=== PATIENT | female | born 1990 | race Hispanic/Latino ===

== ENCOUNTER 2020-10-20 17:29 | Inpatient (IN) | payer OTHER ==
[~2020-10-20] VITALS: Ht 162.6 cm; Wt 130.6 kg
--- NOTE | 2020-10-20 19:01 | NUR ---
BOTH NARES SWABBED FOR COVID-19 WITHOUT COMPLICATION FOR RAPID TESTING. SMAPLE TAKEN TO [facility].
--- NOTE | 2020-10-20 20:01 | NUR ---
10/20/202000 Navya Diaz 1945: PT ARRIVES TO [facility] ROOM 101. PT IS AWAKE, NO C/O PAIN, LIGHTHEADEDNESS, OR NAUSEA.
--- NOTE | 2020-10-21 11:26 | NUR ---
NUTRITION CONSULT RECEIVED. DR. GEORGES WANTING ADVICE ON DIET FOR PATIENT WHILE HERE. SHE DELIVERED HER BABY VIA LAST NIGHT. WAS ON CLEAR LIQUIDS AFTER. SHE IS PLANNING TO BREAST FEED. HEIGHT: 5'4"CURRENT WEIGHT: 287 LBSEARLY WEIGHT (FEBRUARY): 248 LB PATIENT NOT ON INSULIN AT THIS TIME. NURSING CHECKING BLOOD SUGARS. SHE WAS TAKING INSULIN DURING . HGBA1C ON 03/25/20: 9.2. ESTIMATED CALORIE NEEDS: 9140-5021 (18-20 KCAL/KG) ESTIMATED PROTEIN NEEDS: 122 GRAMS (20% OF CALORIES) DIET FOR HERE: I RECOMMEND 75 GM CONSISTENT CARB DIET WHILE HERE. SHE CAN HAVE SNACKS UP TO 25 GRAMS EACH. IF ANY OTHER QUESTIONS OR CONCERNS, DON'T HESITATE TO CALL ME.
--- NOTE | 2020-10-21 12:44 | PR ---
[facility] [address] [facility] [place], [place] [address] Signed PP Progress Notes Datetime Report Generated by CPN: 10/21/2020 12:44 SUBJECTIVE: [id number] Pain: Within Normal Limits Nausea/Vomiting: Denies Vital Signs: [id number] Vital Signs: Reviewed; Within Normal Limits Notable Details: PP Hgb/Hct = 11.9/35.3 Mag level = 4.6 EXAM: Ongoing Abdomen/Uterus: Normal Lochia: Normal Extremities: Normal Incision: Normal IMPRESSION/PLAN/PROCEDURES: [id number] Impression: Normal Progression Plan: Continue Present Management Procedures: None Progress Notes: Doing well, without complaint. Will continue to watch BP and BS's closely, continue Labetalol, but not start Insulin until on routine meal schedule. digital marketing intern Consult for DM Diet ordered. Plan d/c MgSO4 tonight since doing well (Annotations: Data stored by [facility] on behalf of user) Signing Physician: Luis Georges MD (Annotations: Data stored by [facility] on behalf of user) Copies: ~ *Electronically Signed* 10/21/20 1244 LUIS GEORGES MD PATIENT NAME: STEPHANIE OBRIEN PROGRESS NOTE DATE OF : 89 PHYSICIAN: LUIS GEORGES MD RPT #: [id number] REPORT IS CONFIDENTIAL AND NOT TO BE RELEASED WITHOUT AUTHORIZATION
--- NOTE | 2020-10-22 12:25 | PR ---
[facility] [address] [facility] [place], [place] [address] Signed PP Progress Notes Datetime Report Generated by CPN: 10/22/2020 12:25 SUBJECTIVE: [id number] Pain: Within Normal Limits Nausea/Vomiting: Denies Vital Signs: [id number] Vital Signs: Reviewed; Within Normal Limits Notable Details: PP Hgb/Hct = 11.9/35.3 Mag level = 4.6 EXAM: Ongoing Abdomen/Uterus: Normal Lochia: Normal Vulva/Perineum: Normal Extremities: Normal Incision: Normal IMPRESSION/PLAN/PROCEDURES: [id number] Impression: Normal Progression Plan: Continue Present Management Procedures: None Progress Notes: Doing well, without complaint. Insulin schedule started tjhis morning, discussed importance of regular meals and DM diet, with taking Insulin as dierected (started NPH 40 u BID plus Lispro 15 u before each meal. BP stable on Labetalol 200 mg BID. Hopefully home tomorrow. Signing Physician: Luis Georges MD Copies: ~ *Electronically Signed* 10/22/20 1225 LUIS GEORGES MD PATIENT NAME: AUGUSTIN OBRIENIFER PROGRESS NOTE DATE OF : 89 PHYSICIAN: LUIS GEORGES MD RPT #: [id number] REPORT IS CONFIDENTIAL AND NOT TO BE RELEASED WITHOUT AUTHORIZATION
--- NOTE | 2020-10-23 13:43 | OR ---
[address] [address] Signed DATE OF OPERATION: 10/20/2020 SURGEON: Zara Gtz MD DATE OF PROCEDURE 10/20/2020 PREOPERATIVE DIAGNOSES: Chronic hypertension with superimposed preeclampsia, insulin-dependent diabetes, and macrosomia. POSTOPERATIVE DIAGNOSES: Chronic hypertension with superimposed preeclampsia, insulin-dependent diabetes, and macrosomia. PROCEDURE: Primary low transverse segment section, delivery of live male infant. GEOCHEMICAL MANAGER: Dr. Grissom. ANESTHESIA: Spinal. ESTIMATED BLOOD LOSS: 800 mL. COMPLICATIONS: None. DRAINS: Callahan to bladder. FINDINGS: Live male , Apgars 8 and 9. Weight 10 pounds 11 ounces. Normal uterus and normal tubes and ovaries bilateral. The patient is also obese. DESCRIPTION OF PROCEDURE: The patient was brought to the operating room, placed in supine position. After adequate spinal anesthesia was obtained, she was prepped and draped in usual sterile Electronically Signed By: ZARA GTZ MD 10/23/20 1343 PATIENT NAME: STEPHANIE OBRIEN OPERATIVE REPORT DATE OF : 89 REPORT #: [id number] PHYSICIAN: ZARA GTZ MD PCP: ZARA GTZ MD REPORT IS CONFIDENTIAL AND NOT TO BE RELEASED WITHOUT AUTHORIZATION [address] [address] Signed fashion. The patient was already on mag sulfate for seizure prophylaxis. A Callahan catheter was already in the bladder. A Pfannenstiel skin incision was made with a scalpel. Subcutaneous tissue was dissected with the scalpel and Bovie. The fascia was nicked with scalpel and extended in transverse fashion using curved scissors. The underlying abdominal musculature was bluntly and sharply from the fascia above and below the incision. The abdominal musculature was bluntly and sharply along the midline. The peritoneum was grasped with hemostats, elevated, nicked with Metzenbaum scissors and extended in vertical fashion using Metzenbaum scissors. The Richie self-retaining retractor was inserted into the incision and tightened in place. The lower uterine segment was identified and a small incision made in the midline using a scalpel. Incision was extended in transverse fashion using finger dissection. A large amount of clear fluid came from the incision. The was noted to be in vertex presentation and the infant's head easily delivered from the incision. The cord was noted to be around the neck once loosely. This was removed and the rest of the easily delivered from the incision. The cord was doubly clamped and cut. The passed off table in good condition awaiting nurse. The placenta was manually removed. The uterine cavity explored a lap pad to remove any retained membranes. An angle stitch of 0 Monocryl was placed at one end of the incision and a running locking stitch of 0 Monocryl starting at the other end used to close the incision. Second running stitch of 0 Monocryl was used to imbricate the first layer. Good hemostasis was noted. The entire pelvis was irrigated, suctioned, and examined, noted to have good hemostasis. The Richie retractor was removed. A sheet of ACell placed over the lower uterine segment and then the anterior wall peritoneum closed using running stitch of 2-0 Vicryl suture. The abdominal musculature was reapproximated using interrupted stitches of 0 Vicryl suture. The abdominal incision was irrigated, suctioned, and examined, any bleeding spots cauterized with the Bovie. Powdered ACell sprinkled over the abdominal musculature and then the fascia closed using two running stitch of 0 Vicryl suture meeting in the midline. Subcutaneous tissue was irrigated, suctioned and examined. Any bleeding spots cauterized with the Bovie. The subcutaneous tissue was quite thick and so was closed in two layers of interrupted stitches of 2-0 Vicryl suture. The skin was reapproximated using skin clips. The patient tolerated the procedure well, went to recovery room in good condition. The sponge, needle, and instrument count were correct at the end of the procedure. Zara Gtz MD MJB/MODL /[id number] Electronically Signed By: ZARA GTZ MD 10/23/20 1343 PATIENT NAME: STEPHANIE OBRIEN OPERATIVE REPORT DATE OF : 89 REPORT #: [id number] PHYSICIAN: ZARA GTZ MD PCP: ZARA GTZ MD REPORT IS CONFIDENTIAL AND NOT TO BE RELEASED WITHOUT AUTHORIZATION [address] [address] Signed Copies: ~ Electronically Signed By: ZARA GTZ MD 10/23/20 1343 PATIENT NAME: STEPHANIE OBRIEN OPERATIVE REPORT DATE OF : 89 REPORT #: [id number] PHYSICIAN: ZARA GTZ MD PCP: ZARA GTZ MD REPORT IS CONFIDENTIAL AND NOT TO BE RELEASED WITHOUT AUTHORIZATION
--- NOTE | 2020-10-23 13:54 | PR ---
[facility] [address], [place] [address] Signed PP Progress Notes Datetime Report Generated by CPN: 10/23/2020 13:54 SUBJECTIVE: [id number] Pain: Within Normal Limits Nausea/Vomiting: Denies Vital Signs: [id number] Vital Signs: Reviewed; Within Normal Limits Notable Details: PP Hgb/Hct = 11.9/35.3 Mag level = 4.6 EXAM: Ongoing Abdomen/Uterus: Normal Lochia: Normal Vulva/Perineum: Normal Extremities: Normal Incision: Normal Exam Comments: slight dark bloody drainage from right angle IMPRESSION/PLAN/PROCEDURES: [id number] Impression: Normal Progression Plan: Discharge Procedures: None Progress Notes: Doing well, without complaint, readty to go home. BS's somewhat low, so NPH decreased to 30 units BID and Lispro decreased to 10 units before each meal. Discussed checking BS's (Fasting and before each meal) and check if symptoms of hypoglycemia, can decreased Insulin if continue to be low or symptomatic, discussed importance of eating correctly after taking Insulin. Will continue Labetalol as previous (200 mg BID) and watch BP at hopme, can hold dose if BP too low or symptomatic. Keep pressure dressing on right end of incision. Return Tuesday for Staple removal and to check BS's and BP. Questions answered; patient ready to go home Signing Physician: Zara Georges MD Copies: ~ *Electronically Signed* 10/23/20 1597 ZARA GEORGES MD PATIENT NAME: STEPHANIE OBRIEN PROGRESS NOTE DATE OF : 89 PHYSICIAN: ZARA GEORGES MD RPT #: [id number] REPORT IS CONFIDENTIAL AND NOT TO BE RELEASED WITHOUT AUTHORIZATION
== END 2020-10-23 16:05 | disposition home or self-care (01) | DRG 788 ==
LOC: FBC 17:29
PROVIDERS: ADMIT General Practice; ATTEND General Practice
PROC: 10D00Z1 Extraction of Products of Conception, Low, Open Approach (ICD-10-PCS; principal; 2020-10-20 18:05)
DX: O11.4 Pre-existing hypertension with pre-eclampsia, complicating childbirth (principal); O10.92 Unspecified pre-existing hypertension complicating childbirth; Z3A.37 37 weeks gestation of pregnancy; Z37.0 Single live birth; O24.32 Unspecified pre-existing diabetes mellitus in childbirth; E11.9 Type 2 diabetes mellitus without complications; O69.81X0 Labor and delivery complicated by cord around neck, without compression, not applicable or unspecified; O99.214 Obesity complicating childbirth; E66.9 Obesity, unspecified; O36.63X0 Maternal care for excessive fetal growth, third trimester, not applicable or unspecified; O35.8XX0 Maternal care for other (suspected) fetal abnormality and damage, not applicable or unspecified; Z79.4 Long term (current) use of insulin; Z79.899 Other long term (current) drug therapy; Z79.82 Long term (current) use of aspirin
CPT/HCPCS: 01961; 36415; 59025; 76815; 82565; 82570; 83735; 84156; 84450; 84520; 84550; 85025; 85027; A9270; J0690; J1644; J1815; J2001; J2274; J2405; J2590; J3475; U0003